=== PATIENT | female | born 1945 | race Caucasian/White ===

== ENCOUNTER 2016-12-23 06:10 | Day surgery (SDC) | payer BC, MEDICARE ==
[~2016-12-23 06:10] MED LIST: Lactated Ringers 1,000 ML IV SCH
[2016-12-23] MEDS ORDERED: Albuterol 0.083% 2.5 MG/3 ML Neb Soln NEB ONE (07:37)
[2016-12-23] MEDS ORDERED: Albuterol 0.083% 2.5 MG/3 ML Neb Soln ONE (07:38)
[2016-12-23] MEDS ORDERED: Propofol 200 MG/20 ML SDV ONE ×2 (07:57→08:19)
[2016-12-23] MEDS ORDERED: fentaNYL 100 MCG/2 ML SDV ONE (07:57)
[2016-12-23 10:27] VITALS: BP 123/75
--- NOTE | 2016-12-23 15:58 | OR ---
DATE OF SURGERY: 12/23/2016. REFERRING PROVIDER: Valerie Doss MD. PREOPERATIVE DIAGNOSES: 1. History of previous tubulovillous adenoma in 2010. Repeat scope in 2011 was normal. 2. 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 POSTOPERATIVE DIAGNOSES: 1. A 2 mm polyp at 80 cm, removed using cold forceps. 2. Tortuous colon. 3. Normal ileal colic anastomosis. PROCEDURE: Colonoscopy with polypectomy x1 using cold forceps. SURGEON: Levon Mays M.D. ANESTHESIA: Monitored anesthesia care. BOWEL PREP: Good. Marnie is a 71-year-old female who was brought to the endoscopy suite after discussing risks and benefits of the procedure. Informed consent was obtained for conscious sedation and colonoscopy with or without biopsy and/or polypectomy. We also discussed possibility of missed lesions. Pre-procedure exam was unremarkable. IV, oxygen, and monitors were placed. The patient was placed in the left lateral decubitus position. Sedation was administered and a digital rectal exam was performed which was unremarkable. Colonoscope was passed into the rectum and slowly advanced all the way to the ileal colic anastomosis. This area was viewed and photographed. The colonoscope was slowly withdrawn and the mucosa was closed observed in a direct circumferential manner. The ascending colon was remarkable for a tiny 2 mm polyp at 80 cm, which was removed with cold forceps. The transverse colon was unremarkable. The descending colon was unremarkable. The sigmoid colon was unremarkable. The patient was noted to have tortuous colon. Retroflexion was performed and rectal mucosa was unremarkable. Scope was removed. The patient tolerated the procedure well. The patient was monitored until that baseline status. Discharge instructions were reviewed and the patient was discharged in good condition. COMPLICATIONS: None. TOTAL TIME: 26 minutes. ESTIMATED BLOOD LOSS: Less than 1 mL. RECOMMENDATIONS/FOLLOWUP: We will await results of path report to determine ideal followup interval. I would like to kindly thank Dr. Doss for this referral. DMB: 12/23/2016 10:23:54 MODL: 12/23/2016 15:47:48 /[id number]
== END 2016-12-23 09:50 | disposition home or self-care (01) ==
LOC: VM.SDS 06:10
PROVIDERS: ATTEND Family Medicine
DX: D12.6 Benign neoplasm of colon, unspecified (principal); I10 Essential (primary) hypertension; E11.9 Type 2 diabetes mellitus without complications; J45.909 Unspecified asthma, uncomplicated; Z88.8 Allergy status to other drugs, medicaments and biological substances; Z98.890 Other specified postprocedural states; Z90.710 Acquired absence of both cervix and uterus; Z79.899 Other long term (current) drug therapy
CPT/HCPCS: 45380; 82962; 94640; J2704; J3010; J7120; J7620

== ENCOUNTER 2018-03-22 17:17 | Emergency (ER) | payer MEDICARE, BC ==
[2018-03-22] MEDS ORDERED: Sodium Chloride 0.9% 10 ML Syringe FLUSH PRN (17:37)
--- NOTE | 2018-03-22 17:42 | EDM.PDOC ---
ED HPI GENERAL MEDICAL PROBLEM - General Chief Complaint: Syncope Stated Complaint: Faint; Near Syncope Time Seen by Provider: 03/22/18 17:28 Source of Information: Reports: Patient, EMS Notes Reviewed, Family, RN, RN Notes Reviewed History Limitations: Reports: No Limitations - History of Present Illness INITIAL COMMENTS - FREE TEXT/NARRATIVE: Patient is brought to the ED at [facility] via [facility] for a near syncopal episode at home. Patient states over the past couple of days, she has been feeling a little more lightheaded. Today while making bread, patient started feeling more lightheaded and needed to sit down. She states while having these symptoms, she could hear her talking to her, but could not see him. She states it only lasted a few minutes. She did not fall. She did not have any head injury. No recent N/V/D. No chest pain or SOB. No other focal neurological deficits. Onset: Today, Gradual Onset Date: 03/22/18 - Related Data Allergies Allergy/AdvReac Type Severity Reaction Status Date / Time cilastatin sodium Allergy Hives Verified 03/22/18 18:03 [From Primaxin] imipenem [From Primaxin] Allergy Hives Verified 03/22/18 18:03 etoh Allergy Rash Uncoded 03/22/18 18:04 multi vitamin Allergy Hives Uncoded 03/22/18 18:03 Home Meds: Home Meds Acetaminophen 650 mg PO Q4H PRN 12/20/16 [History] Albuterol [Ventolin HFA] 2 puff INH Q4H PRN 12/20/16 [History] Aspirin [Halfprin] 81 mg PO BRK 12/20/16 [History] Cholecalciferol (Vitamin D3) [D-2000] 2,000 unit PO ASDIRECTED 12/20/16 [History ] Fenofibrate Nanocrystallized [Fenofibrate] 145 mg PO BEDTIME 12/20/16 [History] Fluticasone/Salmeterol [Advair 250-50 Diskus] 1 puff INH DAILY 12/20/16 [History ] Furosemide 20 mg PO DAILY 12/20/16 [History] Insulin Glargine,Hum.Rec.Anlog [Touveronicao Solostar] 18 unit SQ DAILY 12/20/16 [ History] Metoprolol Succinate [Toprol XL] 25 mg PO DAILY 12/20/16 [History] Potassium Chloride [Klor-Con 10] 30 meq PO BID 12/20/16 [History] amLODIPine Besylate/Benazepril [Amlodipine-Benazepril 10-20 MG] 1 cap PO DAILY 12/20/16 [History] atorvaSTATin Calcium [Atorvastatin Calcium] 5 mg PO BEDTIME 12/20/16 [History] glipiZIDE [Glipizide ER] 2.5 mg PO DAILY 12/20/16 [History] metFORMIN [Glucophage] 1,000 mg PO ACDINNER 12/20/16 [History] metFORMIN [Glucophage] 1,500 mg PO ACBREAKFAST 12/20/16 [History] Amoxicillin/Clavulanate K [Augmentin 875-125 MG] 1 tab PO BID 03/22/18 [History] Lanreotide Acetate [Somatuline Depot] 120 mg SQ Q30D 03/22/18 [History] Lidocaine HCl [Lidocaine HCl Viscous] 15 ml PO Q6H PRN 03/22/18 [History] Lidocaine/Prilocaine [EMLA Crm] 1 applic TOP ASDIRECTED PRN 03/22/18 [History] OLANZapine [ZyPREXA] 10 mg PO DAILY 03/22/18 [History] Ondansetron [Zofran ODT] 8 mg PO TID PRN 03/22/18 [History] Prochlorperazine [Compazine] 10 mg PO QID PRN 03/22/18 [History] Past Medical History HEENT History: Reports: Allergic Rhinitis, Cataract, Hard of Hearing, Otitis Media Other HEENT History: cerebral spinal fluid otorrhea with mastoiditis Cardiovascular History: Reports: Heart Murmur, High Cholesterol, Hypertension Other Cardiovascular History: valvularheart disease Respiratory History: Reports: Asthma, SOB Gastrointestinal History: Reports: Colon Polyp Other Gastrointestinal History: colectomy. incisional hernea ADOPTION COUNSELOR History: Reports: Musculoskeletal History: Reports: Gout, Osteoarthritis Other Musculoskeletal History: osteopenia Neurological History: Reports: Neuropathy, Diabetic Other Psychiatric History: fen-phen exposure Endocrine/Metabolic History: Reports: Diabetes, Type II Hematologic History: Reports: B12 Deficiency Other Hematologic History: vitamin D deficiency. hypogammaglobunemia Immunologic History: Reports: None Oncologic (Cancer) History: Reports: Colon Other Oncologic History: malignant carcinoid tumor of ileum, Other Dermatologic History: psoriasis - Past Surgical History HEENT Surgical History: Reports: Adenoidectomy, Cataract Surgery, Tonsillectomy GI Surgical History: Reports: Cholecystectomy, Colonoscopy, Small Bowel Oncologic Surgical History: Reports: Other (See Below) ED ROS GENERAL - Review of Systems Review Of Systems: See Below Constitutional: Denies: Fever, Chills, Weakness Respiratory: Denies: Shortness of Breath, Cough Cardiovascular: Denies: Chest Pain, Palpitations GI/Abdominal: Denies: Abdominal Pain, Nausea, Vomiting Skin: Reports: No Symptoms Neurological: Reports: Syncope (Near syncope). Denies: Confusion, Dizziness, Headache - Physical Exam Exam: See Below Exam Limited By: No Limitations General Appearance: Alert, No Apparent Distress Eye Exam: Bilateral Eye: Normal Inspection, PERRL Head Exam: Atraumatic, Normocephalic Neck: Supple Cardiovascular: Normal Peripheral Pulses, Regular Rate, Rhythm GI/Abdominal: Normal Bowel Sounds, Soft, Non-Tender Neuro Exam (Abbreviated): Alert, Oriented, Normal Cognition Skin Exam: Warm, Dry, Normal Color, Other (healing scabbed sore on the upper left posterior back) EKG INTERPRETATION EKG Date: 03/22/18 Time: 17:30 Rhythm: NSR Rate (Beats/Min): 82 [place]: LAD-Left [place] Deviation P-Wave: Present QRS: Normal ST-T: Normal QT: Normal UT/PQ Interval: 0.20 Comparison: No Change EKG Interpretation Comments: 1. Sinus Rhythm 2. Marked left axis deviation 3. Pattern consistent with pulmonary disease 4. Minimal voltage criteria for LVH Course - Vital Signs Last Recorded V/S: Last Vital Signs Temp 36.2 C 03/22/18 17:20 Pulse 99 03/22/18 17:20 Resp 18 03/22/18 17:20 BP 138/73 03/22/18 17:20 Pulse Ox 96 03/22/18 17:20 - Orders/Labs/Meds Orders: Active Orders 24 hr Category Date Time Status EKG 12 Lead [EKG Documentation Completion] [RC] STAT Care 03/22/18 17:35 Active Head wo Cont [CT] Stat Exams 03/22/18 17:35 Taken UA W/MICROSCOPIC [URIN] Stat Lab 03/22/18 17:45 Ordered Sodium Chloride 0.9% [Saline Flush] Med 03/22/18 17:37 Active 10 ml FLUSH ASDIRECTED PRN Peripheral IV Insertion Adult [OM.PC] Routine Oth 03/22/18 17:37 Ordered Medication Orders Sodium Chloride (Saline Flush) 10 ml FLUSH ASDIRECTED PRN PRN Reason: Keep Vein Open Labs: Laboratory Tests 03/22/18 03/22/18 03/22/18 Range/Units 17:45 17:49 17:49 WBC 10.9 H (4.0-10.0) x10^3/uL RBC 2.63 L (4.00-5.50) x10^6/uL Hgb 8.3 L (12.0-16.0) g/dL Hct 25.5 L (33.0-47.0) % MCV 97.0 H (78.0-93.0) fL MCH 31.6 (26.0-32.0) pg MCHC 32.5 (32.0-36.0) g/dL RDW Coeff of Camille 20.7 H (10.0-15.0) % Plt Count 344 (130-400) x10^3/uL Add Manual Diff Yes Neutrophils % (Manual) 93 H (50-80) % Band Neutrophils % 4 (0-6) % Monocytes % (Manual) 2 (2-11) % Basophils % (Manual) 1 (0-1) % Vacuolated Monocytes Rare Platelet Estimate Adequate Plt Morphology Comment See note Anisocytosis 4+ H Tear Drop Cells 1+ slight H Ovalocytes 2+ moderate H Stomatocytes Rare Helmet Cells Rare Sodium 139 (136-145) mmol/L Potassium 4.0 (3.5-5.1) mmol/L Chloride 104 (98-107) mmol/L Carbon Dioxide 21 (21-32) mmol/L Anion Gap 18.0 (10-20) mmol/L BUN 11 (7-18) mg/dL Creatinine 1.0 (0.55-1.02) mg/dL Est Cr Clr Drug Dosing 48.72 mL/min Estimated GFR (MDRD) 54 Glucose 166 H (74-106) mg/dL Uric Acid 5.4 (2.6-6.0) mg/dL Calcium 8.6 (8.5-10.1) mg/dL Corrected Calcium 8.52 (8.5-10.1) mg/dL Total Bilirubin 0.5 (0.2-1.0) mg/dL AST 18 (15-37) U/L ALT 21 (14-59) U/L Alkaline Phosphatase 91 (46-116) U/L Total Protein 7.8 (6.4-8.2) g/dL Albumin 4.1 (3.4-5.0) g/dL Globulin 3.7 Albumin/Globulin Ratio 1.11 Urine Color Dark yellow H (YELLOW) Urine Appearance Slightly cloudy H (CLEAR) Urine pH 5.0 (5.0-8.0) Ur Specific [place] 1.015 Urine Protein 30 H (NEGATIVE) mg/dL Urine Glucose (UA) Negative (NEGATIVE) mg/dL Urine Ketones Negative (NEGATIVE) mg/dL Urine Occult Blood Negative (NEGATIVE) Urine Nitrite Negative (NEGATIVE) Urine Bilirubin Small H (NEGATIVE) Urine Urobilinogen 0.2 (0.2) EU/dL Ur Leukocyte Esterase Small H (NEGATIVE) Urine RBC 0-5 (NOT SEEN) /HPF Urine WBC 5-10 H (NOT SEEN) /HPF Ur Squamous Epith Cells Moderate H (NEGATIVE) /HPF Urine Bacteria Rare (NEGATIVE) /HPF Hyaline Casts Moderate H (NEGATIVE) /HPF Urine Mucus Few H (NEGATIVE) /LPF Meds: Medications Generic Name Dose Route Start Last Admin Trade Name Freq PRN Reason Stop Dose Admin Sodium Chloride 10 ml 03/22/18 17:37 Saline Flush FLUSH ASDIRECTED PRN Keep Vein Open - Radiology Interpretation Free Text/Narrative:: CT Head: No acute findings See scanned document in EMR CT Results Date: 03/22/18 CT Results Time: 18:15 Departure - Departure Time of Disposition: 18:41 Disposition: Home, Self-Care 01 Clinical Impression: Near syncope - Discharge Information *PRESCRIPTION DRUG MONITORING PROGRAM REVIEWED*: Not Applicable *COPY OF PRESCRIPTION DRUG MONITORING REPORT IN PATIENT JAIME: Not Applicable Instructions: Near-Syncope Referrals: Valerie Doss MD [Primary Care Provider] - Forms: ED Department Discharge Additional Instructions: 1. Stay well hydrated and rest 2. Keep appointment with Dr. Meza this Tuesday 3. Will fax labs to Dr. Meza's office 4. Call us with any questions or concerns - Problem List Review Problem List Initiated/Reviewed/Updated: Yes - My Orders Last 24 Hours: My Active Orders 03/22/18 17:35 EKG 12 Lead [EKG Documentation Completion] [RC] STAT Head wo Cont [CT] Stat 03/22/18 17:37 Sodium Chloride 0.9% [Saline Flush] 10 ml FLUSH ASDIRECTED PRN Peripheral IV Insertion Adult [OM.PC] Routine 03/22/18 17:45 UA W/MICROSCOPIC [URIN] Stat - Assessment/Plan Last 24 Hours: My Active Orders 03/22/18 17:35 EKG 12 Lead [EKG Documentation Completion] [RC] STAT Head wo Cont [CT] Stat 03/22/18 17:37 Sodium Chloride 0.9% [Saline Flush] 10 ml FLUSH ASDIRECTED PRN Peripheral IV Insertion Adult [OM.PC] Routine 03/22/18 17:45 UA W/MICROSCOPIC [URIN] Stat Assessment:: Near Syncope Plan: Thoroughly and extensively discussed CT and lab result findings. No medical necessity for admission. Recommend close follow up in clinic as symptoms warrant. Patient has an appointment with Oncology this Tuesday. Encouraged patient to keep this appointment. Labs will be faxed to Dr. Meza's office.
[2018-03-22 18:12] VITALS: BP 138/73
== END 2018-03-22 18:53 | disposition home or self-care (01) ==
LOC: VM.ED 17:17
DX: R55 Syncope and collapse (principal); I10 Essential (primary) hypertension; E78.00 Pure hypercholesterolemia, unspecified; E11.9 Type 2 diabetes mellitus without complications; Z79.82 Long term (current) use of aspirin; Z79.899 Other long term (current) drug therapy; Z88.8 Allergy status to other drugs, medicaments and biological substances
CPT/HCPCS: 70450; 80053; 81001; 84550; 85025; 93005; 93010; 99284; 99284-GF

== ENCOUNTER 2021-10-28 16:36 | Inpatient (IN) | payer MEDICARE, BC ==
[2021-10-28] MEDS ORDERED: Sodium Chloride 0.9% 10 ML Syringe FLUSH PRN (16:57)
[2021-10-28] MEDS ORDERED: Lactated Ringers 1,000 ML IV ONE (17:38)
[2021-10-28 17:44] LABS: ANION GAP 16.3 mmol/L (5-15)
[2021-10-28] MEDS ORDERED: cefTRIAXone 1 GM Vial IVPUSH ONE (17:48)
[2021-10-28] MEDS ORDERED: Magnesium Sulfate/Water 4 GM in Premix Bag 1 BAG IV ONE (17:48)
[2021-10-28] MEDS ORDERED: Ondansetron 4 MG/2 ML SDV IV PRN (19:25)
[2021-10-28] MEDS ORDERED: 50% Dextrose in Water 50 ML Syringe IVPUSH PRN (19:29)
[2021-10-28] MEDS ORDERED: Glucagon,Human Recombinant 1 MG Vial IM PRN (19:29)
[2021-10-28] MEDS ORDERED: Loperamide 2 MG Cap PO PRN (19:30)
[2021-10-28] MEDS ORDERED: Prochlorperazine 5 MG Tab PO PRN (20:29)
[2021-10-28] MEDS: Insulin Glarg,Human.Rec.Analog 100 Unit/ML SUBCUT SCH (21:29)
[2021-10-29 06:57] LABS: CHLORIDE,CL 102 mmol/L (98-107); SODIUM,NA 139 mmol/L (136-145)
[2021-10-29 06:58] LABS: ANION GAP 13.4 mmol/L (5-15)
[2021-10-29] MEDS ORDERED: Albuterol 0.083% 2.5 MG/3 ML Neb Soln INH PRN (07:16)
[2021-10-29] MEDS ORDERED: Acetaminophen 325 MG Tab PO PRN (07:16)
[2021-10-29] MEDS ORDERED: Insulin Glarg,Human.Rec.Analog 100 Unit/ML SUBCUT SCH (08:00)
[2021-10-29] MEDS: Enoxaparin 40 MG/0.4 ML Syringe SUBCUT SCH (08:57)
[2021-10-29] MEDS: Cholecalciferol (Vitamin D3) 25 MCG Tab PO SCH ×2 (08:58→19:57)
[2021-10-29] MEDS: Lisinopril 20 MG Tab PO SCH (08:58)
[2021-10-29] MEDS: amLODIPine 10 MG Tab PO SCH (08:58)
[2021-10-29] MEDS: Magnesium Oxide 400 MG Tab PO SCH ×3 (08:58→19:57)
[2021-10-29] MEDS: Loratadine 10 MG Tab PO PRN (08:59)
[2021-10-29] MEDS: Metoprolol Succinate 25 MG Tab.ER PO SCH (08:59)
[2021-10-29] MEDS: Potassium Chloride 10 MEQ Tab.ER PO SCH ×2 (09:00→19:57)
[2021-10-29] MEDS: Calcium Carbonate 750 MG Tab.Chew PO SCH ×3 (09:01→19:54)
[2021-10-29] MEDS: Insulin Glarg,Human.Rec.Analog 100 Unit/ML SUBCUT SCH (09:09)
[2021-10-29] MEDS ORDERED: Insulin Lispro 100 Units/ML 3 ML Vial SUBCUT SCH (09:30)
[2021-10-29] MEDS: EVEROLIMUS 7.5 MG PO SCH (11:04)
[2021-10-29] MEDS ORDERED: Iron Sucrose Complex 100 MG/5 ML SDV IVPUSH ONE (11:30)
[2021-10-29] MEDS ORDERED: cefTRIAXone 1 GM Vial IVPUSH SCH (18:00)
[2021-10-29] MEDS ORDERED: Miconazole 2% Top Powder 45 GM Container TOP PRN (18:10)
[2021-10-29] MEDS ORDERED: atorvaSTATin 10 MG Tab PO SCH (20:00)
[2021-10-29] MEDS ORDERED: ANASTROZOLE 1 MG PO SCH (20:00)
[2021-10-30 07:07] LABS: CHLORIDE,CL 104 mmol/L (98-107); SODIUM,NA 141 mmol/L (136-145)
[2021-10-30 07:09] LABS: ANION GAP 12.6 mmol/L (5-15)
[2021-10-30] MEDS: Magnesium Oxide 400 MG Tab PO SCH ×2 (08:18→11:34)
[2021-10-30] MEDS: Metoprolol Succinate 25 MG Tab.ER PO SCH (08:19)
[2021-10-30] MEDS: Cholecalciferol (Vitamin D3) 25 MCG Tab PO SCH (08:19)
[2021-10-30] MEDS: Potassium Chloride 10 MEQ Tab.ER PO SCH (08:24)
[2021-10-30] MEDS: Lisinopril 20 MG Tab PO SCH (08:25)
[2021-10-30] MEDS: amLODIPine 10 MG Tab PO SCH (08:25)
[2021-10-30] MEDS: Insulin Glarg,Human.Rec.Analog 100 Unit/ML SUBCUT SCH (08:26)
[2021-10-30] MEDS: Calcium Carbonate 750 MG Tab.Chew PO SCH ×2 (08:26→11:34)
[2021-10-30] MEDS: Enoxaparin 40 MG/0.4 ML Syringe SUBCUT SCH (08:28)
[2021-10-30] MEDS: EVEROLIMUS 7.5 MG PO SCH (08:38)
[2021-10-30] MEDS: Loratadine 10 MG Tab PO PRN (08:47)
[2021-10-30] MEDS: cefTRIAXone 1 GM Vial IVPUSH ONE ×2 (09:15→09:35)
[2021-10-30] MEDS ORDERED: cefTRIAXone 1 GM, Lidocaine 1% 2.1 ML IM ONE ×2 (10:00)
[2021-10-30 12:28] VITALS: BP 104/49; PULSE 89
[2021-11-10] MEDS ORDERED: Cyanocobalamin (Vitamin B12) 1,000 MCG/ML SDV IM SCH (08:00)
== END 2021-10-30 12:25 | disposition home or self-care (01) | DRG 872 ==
LOC: VM.ED 16:36 → VM.MS 19:10
PROVIDERS: ADMIT Internal Medicine; ATTEND Family Medicine
DX: A41.9 Sepsis, unspecified organism (principal); N39.0 Urinary tract infection, site not specified; E34.0 Carcinoid syndrome; D64.81 Anemia due to antineoplastic chemotherapy; T45.1X5A Adverse effect of antineoplastic and immunosuppressive drugs, initial encounter; D50.9 Iron deficiency anemia, unspecified; E83.42 Hypomagnesemia; C50.919 Malignant neoplasm of unspecified site of unspecified female breast; E87.6 Hypokalemia; E11.65 Type 2 diabetes mellitus with hyperglycemia; E66.9 Obesity, unspecified; L30.8 Other specified dermatitis; M81.0 Age-related osteoporosis without current pathological fracture; N30.00 Acute cystitis without hematuria; R55 Syncope and collapse; E78.5 Hyperlipidemia, unspecified; Z90.89 Acquired absence of other organs; Z90.49 Acquired absence of other specified parts of digestive tract; Z90.710 Acquired absence of both cervix and uterus; Z98.42 Cataract extraction status, left eye; Z96.649 Presence of unspecified artificial hip joint; Z98.41 Cataract extraction status, right eye; Z79.1 Long term (current) use of non-steroidal anti-inflammatories (NSAID); Z68.35 Body mass index [BMI] 35.0-35.9, adult; Y92.89 Other specified places as the place of occurrence of the external cause; R53.1 Weakness; H91.90 Unspecified hearing loss, unspecified ear; E78.00 Pure hypercholesterolemia, unspecified; Z90.10 Acquired absence of unspecified breast and nipple; Z79.52 Long term (current) use of systemic steroids; Z86.010 Personal history of colon polyps; Z85.038 Personal history of other malignant neoplasm of large intestine; I10 Essential (primary) hypertension; J45.909 Unspecified asthma, uncomplicated; M19.90 Unspecified osteoarthritis, unspecified site; M10.9 Gout, unspecified; E11.40 Type 2 diabetes mellitus with diabetic neuropathy, unspecified; E55.9 Vitamin D deficiency, unspecified; E53.8 Deficiency of other specified B group vitamins; D80.1 Nonfamilial hypogammaglobulinemia; C7A.012 Malignant carcinoid tumor of the ileum; Z88.8 Allergy status to other drugs, medicaments and biological substances; Z79.82 Long term (current) use of aspirin; Z79.4 Long term (current) use of insulin; Z79.899 Other long term (current) drug therapy; Z20.822 Contact with and (suspected) exposure to COVID-19
CPT/HCPCS: 36415; 71045; 80048; 80053; 81001; 81003; 82947; 83605; 83735; 84145; 84484; 85025; 86140; 87040; 87086; 93005; 96374; 97163-GP; 99284; 99285-25; A9270-GY; J0696; J1650; J1756; J1815-GY; J3475; J7120; Q0164; U0002

== ENCOUNTER 2021-12-19 16:25 | Emergency (ER) | payer MEDICARE, BC ==
[2021-12-19 17:34] LABS: ANION GAP 15.2 mmol/L (5-15); CHLORIDE,CL 106 mmol/L (98-107); SODIUM,NA 139 mmol/L (136-145)
[2021-12-19 17:37] VITALS: BP 141/63; PULSE 85
[2021-12-19] MEDS ORDERED: Take Home: Nitrofurantoin Monohydrate/Macrocrystalline 100 MG, 2 Cap Pack PO ONE ×2 (17:48→18:09)
[2021-12-19] MEDS ORDERED: Lisinopril 20 MG Tab PO SCH (17:50)
== END 2021-12-19 18:10 | disposition home or self-care (01) ==
LOC: VM.ED 16:25
DX: I95.9 Hypotension, unspecified (principal); N30.00 Acute cystitis without hematuria; R60.0 Localized edema; E78.00 Pure hypercholesterolemia, unspecified; I10 Essential (primary) hypertension; E11.9 Type 2 diabetes mellitus without complications; M10.9 Gout, unspecified; Z88.8 Allergy status to other drugs, medicaments and biological substances; Z79.82 Long term (current) use of aspirin; Z79.899 Other long term (current) drug therapy; Z79.4 Long term (current) use of insulin
CPT/HCPCS: 36415; 80053; 81001; 83880; 85025; 87086; 87088; 87186; 99284; 99285; A9270-GY

== ENCOUNTER 2022-01-15 23:39 | Emergency (ER) | payer MEDICARE, BC ==
[2022-01-16] MEDS ORDERED: Ibuprofen 200 MG Tab PO STA (00:08)
[2022-01-16 00:20] VITALS: BP 158/77; PULSE 85
== END 2022-01-16 01:50 | disposition home or self-care (01) ==
LOC: VM.ED 23:39
DX: S80.01XA Contusion of right knee, initial encounter (principal); E11.9 Type 2 diabetes mellitus without complications; I10 Essential (primary) hypertension; Z88.8 Allergy status to other drugs, medicaments and biological substances; Z91.048 Other nonmedicinal substance allergy status; Z79.4 Long term (current) use of insulin; Z79.899 Other long term (current) drug therapy; W18.30XA Fall on same level, unspecified, initial encounter; Y92.000 Kitchen of unspecified non-institutional (private) residence as the place of occurrence of the external cause
CPT/HCPCS: 73560; 82947; 99284; A9270; 99283

== ENCOUNTER 2022-01-28 13:23 | Emergency (ER) | payer MEDICARE, BC ==
[2022-01-28 13:39] VITALS: BP 167/56; PULSE 81
== END 2022-01-28 14:16 | disposition home or self-care (01) ==
LOC: VM.ED 13:23
DX: K64.8 Other hemorrhoids (principal); E78.00 Pure hypercholesterolemia, unspecified; J45.909 Unspecified asthma, uncomplicated; I10 Essential (primary) hypertension; E11.9 Type 2 diabetes mellitus without complications; Z90.49 Acquired absence of other specified parts of digestive tract; Z90.710 Acquired absence of both cervix and uterus; Z79.899 Other long term (current) drug therapy; Z79.82 Long term (current) use of aspirin; Z79.84 Long term (current) use of oral hypoglycemic drugs; Z79.4 Long term (current) use of insulin; Z91.048 Other nonmedicinal substance allergy status; Z88.8 Allergy status to other drugs, medicaments and biological substances; Z88.1 Allergy status to other antibiotic agents; Z91.018 Allergy to other foods
CPT/HCPCS: 99282; 99283